=== PATIENT | female | born 1975 | race Caucasian/White ===

== ENCOUNTER 2016-07-12 17:31 | Emergency (ER) | payer OTHER ==
--- NOTE | 2016-07-16 09:28 | ER ---
ADMIT: 07/12/2016 RM/LOC: ER [facility] MR#: [id number] [address] [id number] [address]ASH [address] [place] [address] Emergency Room Report SEX: F AGE: 40 : 1975 DATE: 07/12/2016 SUBJECTIVE: Akash is a 40-year-old female, who presents to the emergency room with complaints of a skin rash to bilateral arms that started this afternoon after her 1st dose of Cipro. She was given the Cipro for a possible urinary tract infection. She is status post vaginal hysterectomy of the cervix and uterus on June 29, [address] Sanford as she was having lower abdominal pain. She reports that she has been quite frustrated because she continues to have this lower abdominal pain and states that she is having it right now bilateral in her lower pelvis area. She started her right lower back and wraps around to the front. She states that it is a crampy type of pain rating it a 6/10. She reports that she is taking hydrocodone around the clock for the pain. She is so frustrated because prior to April she was healthy and able to work, and since April, she has had this lower abdominal pain that did not change even after the hysterectomy. In the emergency room, we did a CT scan of her abdomen and pelvis, which the impression was no acute abdominal or pelvic abnormality is identified. A urinalysis was done and showed a current urinary tract infection. Since she had a presumed allergy to the Cipro, we started her on Levaquin as she reported taking Levaquin in the past and not having any problems with it. She was given a prescription for Levaquin 500 mg daily for 7 days. In addition, she was also given hydrocodone/acetaminophen 5/325, which she can take 1 to 2 every 4 to 6 hours. She was given a prescription for 25 of those. She was encouraged to follow up with her primary care provider next week. Kayleen Jensen APRN/ mira JOB #: [id number] CC: Michael Estrada MD, Attending Physician Xavi Corado MD, Family Physician
== END 2016-07-12 20:38 | disposition home or self-care (01) ==
LOC: ER 17:31
DX: L27.0 Generalized skin eruption due to drugs and medicaments taken internally (principal); T36.8X5A Adverse effect of other systemic antibiotics, initial encounter; N39.0 Urinary tract infection, site not specified; F17.210 Nicotine dependence, cigarettes, uncomplicated; Z90.710 Acquired absence of both cervix and uterus; Z88.2 Allergy status to sulfonamides; Z79.899 Other long term (current) drug therapy